=== PATIENT | male | born 1950 | race Caucasian/White ===

== ENCOUNTER 2023-08-31 17:06 | Inpatient (IN) | payer MEDICARE, MEDICAID ==
[~2023-08-31] VITALS: Ht 172.7 cm; Wt 74.4 kg
[2023-08-31] MEDS ORDERED: ACETAMINOPHEN 650MG SUPP PR STA (18:53)
[2023-08-31] MEDS: PIPERACILLIN/TAZO 3.375G/50ML 50 ML IV ONE (19:12)
[2023-08-31] MEDS: ACETAMINOPHEN 325MG TABLET PO ONE (19:23)
[2023-08-31 20:16] LABS: HEMATOCRIT. 33.7 % (42.0-52.0); HEMOGLOBIN. 11.3 g/dL (14.0-18.0); MEAN CORPUSCULAR HEMOGLOBIN 35.8 pg (28.0-32.0); MEAN CORPUSCULAR HGB CONC 33.6 g/dL (31.0-37.0); MEAN CORPUSCULAR VOLUME 106.5 fL (80.0-94.0); MEAN PLATELET VOLUME 8.6 fl (7.4-10.4); PLATELET 182 x1000/uL (130-400); RED BLOOD CELL COUNT 3.16 mill/uL (4.7-6.1); RED CELL DISTRIBUTION WIDTH 16.6 % (11.6-14.6)
[2023-08-31 20:17] LABS: DIFFERENTIAL COMMENT 1
[2023-08-31 20:29] LABS: AMMONIA < 17 uMol/L (<32)
[2023-08-31 20:31] LABS: BG BASE EXCESS 2.1 mmol/L (-2.0-2.0); BG CARBOXYHEMOGLOBIN 0.3 % (0.5-1.5); BG DEOXYHEMOGLOBIN 3.5 % (0.0-5.0); BG FRACTION INSPIRED OXYGEN 21; BG HCO3 ACT 24.9 mmol/L (22.0-26.0); BG METHEMOGLOBIN 0.3 % (0.0-1.5); BG OXYGEN SATURATION 96.5 % (92.0-98.5); BG OXYHEMOGLOBIN 95.9 % (94.0-97.0); BG PCO2 32.9 mmHg (35.0-45.0); BG PH 7.497 (7.350-7.450); BG PO2 81.6 mmHg (75.0-100.0); BG SAMPLE SITE RIGHT RADIAL; BG TOTAL HEMOGLOBIN 11.9 g/dL (12.0-18.0); BG VENT MODE ROOM AIR
[2023-08-31 20:31] LABS: ALANINE AMINOTRANSFERASE 11 IU/L (10-49); ALBUMIN 3.7 g/dL (3.2-4.8); ASPARTATE AMINOTRANSFERASE 27 IU/L (<34); BILIRUBIN TOTAL 0.3 mg/dL (0.1-1.0); CALCIUM 9.6 mg/dL (8.7-10.4); CARBON DIOXIDE 26 mEq/L (21-32); CHLORIDE 97 mEq/L (98-107); GLUCOSE 108 mg/dL (70-105); POTASSIUM 3.4 mEq/L (3.5-5.1); PROTEIN TOTAL 7.7 g/dL (6.0-8.3); SODIUM 132 mEq/L (136-145); TROPONIN I HIGH SENSITIVITY 18 ng/L (3.0-53); UREA NITROGEN BLOOD 32 mg/dL (9-23)
[2023-08-31 20:32] LABS: ETHANOL BLOOD < 10 mg/dL (<10); PLATELET ESTIMATE NORMAL
[2023-08-31 20:33] LABS: ANISOCYTOSIS 2+
[2023-08-31 20:34] LABS: CREATININE 5.4 mg/dL (0.6-1.3)
[2023-08-31] MEDS: HYDRALAZINE 20MG/ML VIAL IV SCH (20:58)
[2023-08-31] MEDS ORDERED: ACETAMINOPHEN 325MG TABLET PO PRN (21:45)
[2023-08-31] MEDS ORDERED: ZOLPIDEM TARTRATE 5MG TABLET PO PRN (21:45)
[2023-08-31] MEDS ORDERED: MAGNESIUM/ALUMINUM HYDROXIDE/SIMETHICONE 30ML UDC PO PRN (21:45)
[2023-08-31] MEDS ORDERED: VANCOMYCIN 1G PREMIX 200 ML IV SCH (21:45)
[2023-08-31] MEDS ORDERED: ONDANSETRON HCL 4MG/2ML INJ IV PRN (21:45)
[2023-08-31] MEDS: SODIUM CHLORIDE 0.9% INJ 3ML FLUSH IVF SCH (22:00)
[2023-08-31] MEDS: VANCOMYCIN 1.5GM/250ML IV NR (23:44)
[2023-09-01 00:10] VITALS: BP 181/84; PULSE 83; RESP 18; TEMP 98.4
[2023-09-01 08:00] VITALS: BP 144/77; PULSE 96; RESP 18; TEMP 98.1
[2023-09-01] MEDS ORDERED: PIPERACILLIN/TAZO 3.375G/50ML 50 ML IV SCH (09:00)
[2023-09-01] MEDS: CARVEDILOL 12.5MG TABLET PO SCH (09:32)
[2023-09-01] MEDS: PIPERACILLIN/TAZO 3.375G/50ML 50 ML IV SCH (09:32)
[2023-09-01] MEDS: FOLIC ACID/VITAMIN B COMP W-C TABLET PO SCH (09:33)
[2023-09-01] MEDS: HYDRALAZINE HCL 100MG TABLET PO SCH (09:33)
[2023-09-01] MEDS: FOLIC ACID 1MG TABLET PO SCH (09:33)
[2023-09-01 12:00] VITALS: BP 151/73; PULSE 89; RESP 18; TEMP 99.3
[2023-09-01] MEDS: ACETAMINOPHEN 325MG TABLET PO PRN (14:55)
[2023-09-01 16:00] VITALS: BP 163/75; PULSE 82; RESP 18; TEMP 99.1
[2023-09-01 20:00] VITALS: BP 202/95; PULSE 94; RESP 18; TEMP 98.6
[2023-09-02] VITALS: BP 194/93; PULSE 100; RESP 16; TEMP 98.5
[2023-09-02] MEDS: HYDRALAZINE 20MG/ML VIAL IV PRN (01:26)
[2023-09-02] MEDS: DIPHENHYDRAMINE 50MG/ML VIAL IV PRN (02:41)
[2023-09-02] MEDS: CLONIDINE 0.1MG TABLET PO PRN (02:41)
[2023-09-02 04:00] VITALS: BP 182/90; PULSE 88; RESP 18; TEMP 98
[2023-09-02 08:00] VITALS: BP_SYST 128; BP_SYST 147; BP_DIAS 65; BP_DIAS 85; PULSE 65; PULSE 87; RESP 18; TEMP 96.1; TEMP 96.6
[2023-09-02 08:01] LABS: BASOPHILS % 0.9 % (0.0-2.0); DIFFERENTIAL COMMENT 0; EOSINOPHILS % 0.5 % (0.0-5.0); HEMATOCRIT. 32.6 % (42.0-52.0); LYMPHOCYTES % 9.1 % (20.0-50.0); MEAN CORPUSCULAR HEMOGLOBIN 36.4 pg (28.0-32.0); MEAN CORPUSCULAR HGB CONC 33.7 g/dL (31.0-37.0); MEAN CORPUSCULAR VOLUME 108.2 fL (80.0-94.0); MEAN PLATELET VOLUME 9.4 fl (7.4-10.4); MONOCYTES % 10.5 % (2.0-8.0); PLATELET 164 x1000/uL (130-400); RED BLOOD CELL COUNT 3.01 mill/uL (4.7-6.1); RED CELL DISTRIBUTION WIDTH 16.5 % (11.6-14.6); WHITE BLOOD COUNT 8.2 x1000/uL (4.5-11.0)
[2023-09-02 08:10] LABS: CALCIUM 10.2 mg/dL (8.7-10.4); CARBON DIOXIDE 24 mEq/L (21-32); CHLORIDE 97 mEq/L (98-107); GLUCOSE 82 mg/dL (70-105); POTASSIUM 3.8 mEq/L (3.5-5.1); SODIUM 133 mEq/L (136-145); UREA NITROGEN BLOOD 42 mg/dL (9-23)
[2023-09-02 12:00] VITALS: BP 160/78; PULSE 77; RESP 18; TEMP 97.5
[2023-09-02 16:00] VITALS: BP 159/84; PULSE 80; RESP 20; TEMP 99.7
[2023-09-02 20:00] VITALS: BP 185/81; PULSE 79; RESP 18; TEMP 98.5
[2023-09-03] VITALS: BP 152/77; PULSE 77; RESP 18; TEMP 98.9
[2023-09-03 04:00] VITALS: BP 141/84; PULSE 79; RESP 17; TEMP 98
[2023-09-03 08:00] VITALS: BP 133/85; PULSE 78; RESP 18; TEMP 98.2
[2023-09-03 10:22] LABS: BASOPHILS % 1.1 % (0.0-2.0); DIFFERENTIAL COMMENT 0; EOSINOPHILS % 3.5 % (0.0-5.0); HEMATOCRIT. 33.5 % (42.0-52.0); HEMOGLOBIN. 11.3 g/dL (14.0-18.0); LYMPHOCYTES % 10.2 % (20.0-50.0); MEAN CORPUSCULAR HEMOGLOBIN 36.4 pg (28.0-32.0); MEAN CORPUSCULAR HGB CONC 33.7 g/dL (31.0-37.0); MEAN PLATELET VOLUME 9.1 fl (7.4-10.4); MONOCYTES % 7.6 % (2.0-8.0); NEUTROPHILS % 77.6 % (40.0-76.0); PLATELET 173 x1000/uL (130-400); RED CELL DISTRIBUTION WIDTH 17.1 % (11.6-14.6); WHITE BLOOD COUNT 6.4 x1000/uL (4.5-11.0)
[2023-09-03] MEDS: GUAIFENESIN 200MG/10ML SUGAR FREE UDC PO PRN (10:54)
[2023-09-03 11:01] LABS: CALCIUM 10.3 mg/dL (8.7-10.4); CARBON DIOXIDE 21 mEq/L (21-32); CHLORIDE 96 mEq/L (98-107); GLUCOSE 119 mg/dL (70-105); PHOSPHORUS 4.4 mg/dL (2.5-4.9); POTASSIUM 3.7 mEq/L (3.5-5.1); SODIUM 132 mEq/L (136-145); UREA NITROGEN BLOOD 48 mg/dL (9-23)
[2023-09-03 11:02] LABS: CREATININE 9.5 mg/dL (0.6-1.3)
[2023-09-03 12:00] VITALS: BP 199/89; PULSE 87; RESP 18; TEMP 97.5
[2023-09-03 17:00] VITALS: BP 198/90; PULSE 79; RESP 18; TEMP 97.9
[2023-09-03 20:00] VITALS: BP 219/98; PULSE 77; RESP 20; TEMP 98.2
[2023-09-04] VITALS (16 sets, daily range): BP systolic 82–196; BP diastolic 67–96; PULSE 67–163; RESP 16–20; TEMP 96.3–98.5; O2SAT 96
[2023-09-04 06:22] LABS: CALCIUM 9.9 mg/dL (8.7-10.4); POTASSIUM 3.8 mEq/L (3.5-5.1)
[2023-09-04 06:28] LABS: CREATININE 10.4 mg/dL (0.6-1.3)
== END 2023-09-04 19:11 | disposition home or self-care (01) | DRG 871 ==
LOC: ER 17:06 → 8WST 18:57 → EDBEDREQ 19:28 → EDBEDREQTM 19:28 → 8WST 09-01 18:16
PROVIDERS: ADMIT Internal Medicine; ATTEND Internal Medicine
PROC: 5A1D70Z Performance of Urinary Filtration, Intermittent, Less than 6 Hours Per Day (ICD-10-PCS; principal; 2023-09-02)
DX: A41.89 Other specified sepsis (principal); G93.41 Metabolic encephalopathy; N18.6 End stage renal disease; U07.1 COVID-19; I13.2 Hypertensive heart and chronic kidney disease with heart failure and with stage 5 chronic kidney disease, or end stage renal disease; I50.9 Heart failure, unspecified; D50.8 Other iron deficiency anemias; E78.5 Hyperlipidemia, unspecified; Z99.2 Dependence on renal dialysis; Z82.49 Family history of ischemic heart disease and other diseases of the circulatory system; Z83.3 Family history of diabetes mellitus
CPT/HCPCS: 36415; 36600; 70496; 70498; 71045; 80048; 80053; 80202; 80320; 82140; 82375; 82805; 82962; 83605; 83735; 83880; 84100; 84145; 84484; 85025; 87426; 90935; 93005; 93306; 99285; J0360; J1200; J2543; J3370; G0480